=== PATIENT | male | born 1955 | race Caucasian/White ===

== ENCOUNTER 2025-09-17 03:01 | Emergency (ER) | payer MEDICARE, OTHER, SELFPAY ==
[2025-09-17 03:04] VITALS: BP 164/81
[2025-09-17 03:20] VITALS: BP 167/76
[2025-09-17 03:23] VITALS: BMI 31.6
[2025-09-17 03:44] LABS: Hematocrit 38.3 % (39.0-52.0); Hemoglobin 12.7 g/dL (13.0-18.0); Mean Corp Hgb Conc. 33.2 g/dL (33.0-37.0); Mean Corpuscular Volume 91.0 fL (80.0-94.0); Nucleated Red Blood Cells % 0 % (-); Platelet Count 243 10^3/uL (130-400); Red Cell Dist. Width 13.5 % (11.5-14.5)
[2025-09-17 04:00] VITALS: BP 151/75
[2025-09-17 04:07] LABS: ALT (SGPT) 23 U/L (0-50); AST (SGOT) 21 U/L (17-59); Albumin 4.3 g/dl (3.5-5.0); Alkaline Phosphatase 53 U/L (38-126); Blood Urea Nitrogen 15 mg/dl (9-20); Calcium 9.1 mg/dl (8.4-10.2); Carbon Dioxide 25 mmol/L (22-30); Chloride 107 mmol/L (98-107); Estimated Creatinine Clearance 118 ml/min; Glucose 122 mg/dl (70-99); Potassium 4.2 mmol/L (3.5-5.1); Sodium 139 mmol/L (135-145); Total Protein 7.0 g/dl (6.3-8.2); eGFR > 60.00
[2025-09-17 04:20] LABS: Troponin I < 0.012 ng/ml
[2025-09-17 04:51] VITALS: BP 124/58
[2025-09-17] MEDS: NSS 1000 IV (04:57)
[2025-09-17 05:00] VITALS: BP 151/62
[2025-09-17 06:01] VITALS: BP 166/75
[2025-09-17 06:41] LABS: Troponin I < 0.012 ng/ml
--- NOTE | 2025-09-17 06:44 | ED.GENMED ---
History of Present Illness
General
Chief Complaint: Chest Pain
Source: patient
Exam Limitations: none
Time Seen by Provider: 09/17/25 03:17
Nursing documentation reviewed up to this point in time: agreed with
History of Present Illness
History of Present Illness:
Note:
CHIEF COMPLAINT(S)
The patient presents with chest pain.
HISTORY OF PRESENT ILLNESS
The patient is a 69-year-old male with a history of coronary artery disease, who awoke at approximately 1:00 AM with right-sided chest pain. The pain persisted for about two and a half hours but had nearly resolved by the time of the consultation.
The patient stated, 'its actually almost non-existent now.' He has a history of five stents placed and is under the care of a ventilating expert, Dr. Moreno. The patient last experienced a cardiac event in 2011. He denies any recent illness and
maintains regular employment. He has been advised by his ventilating expert to seek medical evaluation for any chest pain, especially given the nature of the symptom onset in the middle of the night. The patient is undergoing a full cardiac workup, with
repeat labs planned. If results are satisfactory, discharge with follow-up care with Dr. Durant is intended.
CHRONIC MEDICAL CONDITIONS SIGNIFICANTLY AFFECTING CARE
The patient has a history of high cholesterol and is currently taking statins. He also has hypertension.
SOCIAL DETERMINANTS AFFECTING HEALTH
The patient�s daily routine includes going to work, indicating active employment. He has not smoked since 1982.
MEDICATIONS
The patient takes statins for high cholesterol.
REVIEW OF SYSTEMS
- Cardiovascular: Reports prior stent placement, history of hypertension.
- Gastrointestinal: No recent illnesses reported.
- Musculoskeletal: Reports occasional bilateral ankle swelling, noted as 1+ pitting edema.
PHYSICAL EXAM
General: Alert, no acute distress.
Skin: Warm, dry.
Head: Normocephalic, atraumatic.
Neck: Supple, trachea midline.
Eyes, Ears, Nose, Mouth, and Throat: Oral mucosa moist.
Cardiovascular: Normal peripheral perfusion, recently noted to be 1+ pitting edema in ankles.
Respiratory: Respirations are non-labored.
Gastrointestinal: Abdomen nondistended.
Back: Normal range of motion, normal alignment.
Musculoskeletal: Normal ROM, normal strength.
Neurological: Alert and oriented to person, place, time, and situation, no focal neurological deficit observed.
Psychiatric: Cooperative, appropriate mood & affect.
PROBLEM LIST
Acute Problems:
- Right-sided chest pain
Chronic Problems:
- Coronary artery disease
- Hyperlipidemia
- Hypertension
PLAN
1. Conduct a comprehensive cardiac workup, including laboratory tests.
2. If cardiac evaluation is unremarkable, discharge with instructions to follow up with Dr. Durant.
3. Advise the patient to abstain from caffeinated coffee until further notice.
DIFFERENTIAL DIAGNOSIS
The Differential Diagnosis includes, in no particular order and is not limited to:
1. Angina pectoris
2. Acute coronary syndrome
3. Gastroesophageal reflux disease
4. Musculoskeletal chest pain
5. Pulmonary embolism
6. Pericarditis
7. Aortic dissection
8. Costochondritis
9. Pneumothorax
10. Anxiety-related chest pain
EKG
My independent EKG interpretation is:
- Rhythm: Sinus bradycardia
- Heart rate: 45 beats per minute
- Butternut: Normal
- Abnormalities: None noted
- Ischemia: No events of ischemia observed
- Previous EKG: Sinus bradycardia with a heart rate of 57 beats per minute, consistent with previous findings
Disposition:
SUMMARY OF ENCOUNTER
The patient, a 69-year-old male with a history of coronary artery disease, presented with chest pain that awoke him from sleep but resolved prior to his arrival at the emergency department. The initial management included monitoring cardiac
biomarkers, specifically two troponin levels, which were negative. An EKG revealed no ischemic changes, though an episode of bradycardia was noted. After consultation with Dr. Wrayon�s partner, Dr. Huffman, it was determined that the patient�s
asymptomatic bradycardia could be managed as an outpatient. The patient remained chest pain-free during his stay and opted for discharge.
DISPOSITION
Discharge.
ASSESSMENT
The patient presented with chest pain, likely non-cardiac given negative troponins and lack of ischemic changes on EKG, along with asymptomatic bradycardia.
PLAN
The patient is placed in the chest pain referral hotline for further monitoring and follow-up. He is advised to refrain from consuming caffeinated coffee until further notice, as per the initial plan for cardiac health.
INDEPENDENT REVIEW OF LABS AND INTERPRETATION OF TESTS
- My independent review of cardiac biomarkers, including two troponins, is negative.
- My independent EKG interpretation shows sinus bradycardia, with no ischemic changes observed.
MANAGEMENT OF THE PATIENTS CARE WAS DISCUSSED WITH
Discussion of patient management took place with Dr. Moody partner, Dr. Huffman.
PATIENT EDUCATION AND COUNSELING
The patient was informed about the findings, the significance of negative troponins, and the outpatient management plan for bradycardia. He was advised on dietary restrictions related to caffeinated beverages and the importance of follow-up care.
FOLLOW-UP INSTRUCTIONS
The patient is instructed to follow up through the chest pain referral hotline and continue care under the supervision of Dr. Durant.
MEDICAL DECISION MAKING
- Number and Complexity of Problems Addressed: Chronic conditions affecting care include coronary artery disease and hypertension. The differential diagnosis included angina pectoris, acute coronary syndrome, and other non-cardiac causes like
musculoskeletal chest pain or gastroesophageal reflux disease.
- Data:
Category 1:
- Two troponins were ordered and reviewed; both were negative.
Category 2:
- My independent interpretation of EKG showed sinus bradycardia.
Category 3:
- Discussion of patient management with Dr. Camejo partner, Dr. Huffman.
- Risk: Consideration of Admission/Observation: Escalation of care was considered given the complexity and risk associated with the patient�s presenting complaint. However, the negative cardiac work-up and patient�s wish to be discharged led to the
decision for outpatient management with close follow-up.
DIAGNOSIS
1. Chest pain, unspecified (ICD-10: R07.9)
2. Bradycardia, unspecified (ICD-10: R00.1)
Past History
Past History
ED Past Medical History: CAD, GERD, HTN, Hypercholesterolemia, [place] and Other (Pancreatitis, history of alcohol abuse, anxiety, depression, lightheadedness, hand tremors)
ED Past Surgical History: Appendectomy and Cardiac (5 cardiac stents)
Social History
Tobacco: Non-smoker
Personal:
Living: with family
Employment: Employed
Phy Exam
Physical Exam
Physical Exam:
.
Scores
Heart Score for Chest Pain Patients
STEMI patient?: No
History: Slightly or Non-Suspicious
ECG: Normal
Age: >/= 65 years
Risk Factors: >/= 3 Risk Factors or History of CAD
Troponin: </= Normal Limit
Heart Score for Chest Pain Patients: 4
Heart Score Risk: 20.3% MACE over next 6 weeks
Course
Orders/Labs/Results
Orders:
Orders
09/17/25 03:02
ECG [Electrocardiogram (*1)] Urgent
Reason for Study: Chest Pain
09/17/25 03:03
EKG- Treatment ONCE
09/17/25 03:34
Cardiac Monitoring- Treatment ONCE
IV Insert/Care/Rem.- Treatment PRN
Pulse Ox/spot Check [RESP] Urgent
Quantity: 1
Special Instructions: ON ROOM AIR
09/17/25 03:36
Complete Blood Count/With Diff Urgent
Comprehensive Metabolic Panel Urgent
Troponin I Urgent
09/17/25 04:55
0.9% Sodium Chloride 1000 ml [Nss] 1,000 ml IV BOLUS
09/17/25 05:41
Electrocardiogram (*1) Urgent
Reason for Study: Chest Pain
EKG- Treatment ONCE
CR Chest - 2 Views Urgent
Comment:
Reason For Exam: cp
09/17/25 06:02
Troponin I Urgent
Abnormal Lab Results
09/17/25
03:36
RBC 4.21 L 10^6/uL
(4.70-6.10)
Hgb 12.7 L g/dL
(13.0-18.0)
Hct 38.3 L %
(39.0-52.0)
Absolute Lymphs (auto) 1.1 L 10^3/uL
(1.2-3.4)
Lymphocytes % 15.1 L %
(20.5-51.1)
Glucose 122 H mg/dl
(70-99)
09/17/25 03:36
09/17/25 03:36
Vital Signs
Initial and Last Documented VS:
Initial Vital Signs
Temp Pulse Resp BP Pulse Ox
98.2 F 61 16 164/81 97
09/17/25 03:04 09/17/25 03:04 09/17/25 03:04 09/17/25 03:04 09/17/25 03:04
Last Documented Vital Signs
Temp Pulse Resp BP Pulse Ox
98.2 F 44 20 151/62 97
09/17/25 03:04 09/17/25 05:00 09/17/25 05:00 09/17/25 05:00 09/17/25 05:00
*Radiology
Radiology exam reviewed: all reviewed NAD by ED Provider
*Pulse Oximetry
SaO2: 97
Oxygen Mode of Delivery: Room air
Patient hypoxic: no
*Critical Care Note
Total Time (30-74mins, 75-104mins- exclusive of procedures): Not Applicable
ED Attending Note
-
Portions of this chart may have been created with voice recognition software.� Occasional wrong word or��sound alike� substitutions may have occurred due to the inherent limitations of voice recognition software.
Discharge Plan
Departure
Patient Disposition: Home (Routine Discharge)
Date of Disposition: 09/17/25
Time of Disposition: 06:44
Patient with high blood pressure during this ER visit?: Yes
Condition: Good
Discharge Problem:
Chest pain, Bradycardia
Instructions: Chest Pain CBC Follow Up, Bradycardia
Prescriptions:
No Action
atorvastatin 20 MG tablet
80 mg PO QPM
diphenhydramine HCl [Banophen] 25 MG capsule
25 mg PO HS
omeprazole magnesium [Prilosec OTC] 20 MG tablet,delayed release (DR/EC)
20 mg PO Q48H
metoprolol tartrate 25 MG tablet
37.5 mg PO BID
furosemide 20 MG tablet
49 mg PO DAILY
amlodipine 10 MG tablet
10 mg PO DAILY
ramipril 10 MG capsule
10 mg PO BID
nitroglycerin 0.4 MG tablet, sublingual
0.4 mg sublingual [id number] PRN (Reason: chest pain)
oxycodone 5 MG capsule
5 mg PO Q4HPRN PRN (Reason: pain) Qty: 25 0RF
aspirin 325 MG tablet,delayed release (DR/EC)
325 mg PO DAILY Qty: 30 0RF
Referrals:
Ever Genao DO [Family Provider, Family Practice]
Jean Moreno MD [Active, Cardiology]
Activity Restrictions/Additional Instructions:
As discussed, you should be receiving a call from Dr. Moreno's office in the next day or so. Please follow-up. If you have any return of symptoms return now and your follow-up appointment, return directly to the emergency department.
Thank You for choosing [facility].
It was a pleasure meeting you and taking part in your care. We hope for your continued healing and wellness.
Please read discharge instructions in their entirety. However, they are for general education and may not describe your exact diagnosis at discharge. Information on your ER visit and medical conditions were discussed with you along with appropriate
follow up information...
If indicated, please take your medications as instructed and indicated on discharge paperwork.
Please schedule a follow up appointment as directed. Call to schedule an appointment
Please return to the emergency department with ANY change in, persisting, or worsening of symptoms. If any of your symptoms do not improve, or persist, or become more severe within 6-12 hours, please return to the emergency department for further
care.
Please return to the emergency department if you develop a headache, neck pain/stiffness, fever greater than 100.4F, chest pain, shortness of breath, persistent nausea, vomiting, slurred speech, difficulty walking, numbness/tingling, weakness, signs
of infection or any other symptoms that are worrisome to you.
If you have any questions or concerns please do not hesitate to call the Hospital at .
Interventions
Interventions:
*Risk Screen - Suicide Last Done: 09/17/25 03:10
*General Assessment Last Done: 09/17/25 03:10
*Neglect/Abuse Screening Last Done: 09/17/25 03:10
*ED- Fall Risk Assessment Last Done: 09/17/25 03:10
*ED COVID-19 Vaccine History Last Done: 09/17/25 03:10
*ED Influenza Vaccine History Last Done: 09/17/25 03:10
ED- Cardiac Assessment Last Done: 09/17/25 03:24
Discharge Date and Time
Print Language: MEXICAN
== END 2025-09-17 06:54 | disposition home or self-care (01) ==
LOC: EMR 03:01
PROVIDERS: EMERGENCY PHYSICIAN Student in an Organized Health Care Education/Training Program; FAMILY PHYSICIAN Family Medicine
DX: R07.89 Other chest pain (principal); R00.1 Bradycardia, unspecified; I25.10 Atherosclerotic heart disease of native coronary artery without angina pectoris; E78.00 Pure hypercholesterolemia, unspecified; I10 Essential (primary) hypertension; I25.2 Old myocardial infarction; Z95.5 Presence of coronary angioplasty implant and graft; Z90.49 Acquired absence of other specified parts of digestive tract; Z79.899 Other long term (current) drug therapy
CPT/HCPCS: 96360; 99285; 71046; 80053; 84484; 85025; 93005

== ENCOUNTER → 2025-10-20 15:57 | Outpatient (REF) | payer MEDICARE, OTHER, SELFPAY | LOC: HWRCS 15:57 | PROVIDERS: ATTENDING PHYSICIAN Internal Medicine Cardiovascular Disease; FAMILY PHYSICIAN Family Medicine | DX: I25.110 Atherosclerotic heart disease of native coronary artery with unstable angina pectoris (principal) | CPT/HCPCS: 93306 ==

== ENCOUNTER → 2025-10-31 08:35 | Outpatient (REF) | payer MEDICARE, OTHER, SELFPAY | LOC: HWRCS 08:35 | PROVIDERS: ATTENDING PHYSICIAN Internal Medicine Cardiovascular Disease; FAMILY PHYSICIAN Family Medicine | DX: I25.10 Atherosclerotic heart disease of native coronary artery without angina pectoris (principal) | CPT/HCPCS: 78452; 93017; A9500 ==